=== PATIENT | male | born 1990 | race American Indian/Alaskan Native ===

== ENCOUNTER 2016-11-26 08:00 | Emergency (ER) | payer OTHER ==
[2016-11-26] MEDS ORDERED: NACL 0.9% 1000 ML 1,000 ML IV ONE (08:27)
[2016-11-26 08:47] LABS: Basophils % (Auto) 0.6 % (0.0-1.8); Eosinophils % (Auto) 1.4 % (0.0-4.3); Hematocrit 36.8 % (35.5-45.6); Hemoglobin 12.1 gm/dl (11.8-15.2); Mean Corpuscular HGB Conc 33 % (32-34); Mean Corpuscular Hemoglobin 31 pg (28-32); Mean Corpuscular Volume 94 fl (84-94); Platelet Count 277 K/mm3 (140-440); Red Blood Count 3.92 M/mm3 (3.65-5.03); Red Cell Distribution Width 13.4 % (13.2-15.2); White Blood Count 6.5 K/mm3 (4.5-11.0)
[2016-11-26 08:58] LABS: INR 1.01 (0.87-1.13)
[2016-11-26 08:59] LABS: Partial Thromboplastin Time 38.1 Sec. (24.2-36.6)
[2016-11-26 09:03] LABS: Alanine Aminotransferase 11 units/L (7-56); Albumin 3.6 g/dL (3.9-5); Albumin/Globulin Ratio 1.2 %; Alkaline Phosphatase 61 units/L (35-129); Anion Gap 12 mmol/L; Bilirubin,Total < 0.2 mg/dL (0.1-1.2); Blood Urea Nitrogen 9 mg/dL (9-20); Carbon Dioxide 30 mmol/L (22-30); Chloride 104.3 mmol/L (98-107); Glucose 91 mg/dL (75-100); Lipase 30 units/L (13-60); Potassium 4.2 mmol/L (3.6-5.0); Sodium 142 mmol/L (137-145); Total Protein 6.6 g/dL (6.3-8.2)
--- NOTE | 2016-11-26 10:33 | Emergency Department Report ---
ED GI Bleed HPI - General Chief complaint: GI Bleed Stated complaint: RECTUM BLEEDING Time Seen by Provider: 11/26/16 10:07 Source: patient Mode of arrival: Stretcher Limitations: No Limitations - History of Present Illness Initial comments: 25-year-old male presents to the emergency department complaining of rectal pain and bleeding. Patient states for the past 4 days he has been having bright red blood and blood clots in his stool. He reports pain and swelling with bowel movements. He also reports pain with walking. He denies abdominal pain, chest pain, difficulty breathing, or lightheadedness. There are no other complaints. MD complaint: gross hematochezia -: Gradual, days(s) (4) Radiation: none Severity scale (0 -10): 7 Quality: sharp Consistency: constant Improves with: none Worsens with: bowel movement Associated Symptoms: denies other symptoms - Related Data Previous Rx's Medication Instructions Recorded Last Taken Type Docusate Sodium [Colace] 100 mg PO BID #60 capsule 11/26/16 Unknown Rx Hydrocortisone [Anucort-HC SUPPOS] 25 mg RC BID #20 supp.rect 11/26/16 Unknown Rx traMADol [Ultram] 50 mg PO Q6HR PRN #20 tablet 11/26/16 Unknown Rx Allergies Allergy/AdvReac Type Severity Reaction Status Date / Time tomato Allergy Swelling Verified 11/26/16 08:18 ED Review of Systems ROS: Stated complaint: RECTUM BLEEDING Other details as noted in HPI Comment: All other systems reviewed and negative Gastrointestinal: as per HPI, hematochezia ED Past Medical Hx - Past Medical History Previous Medical History?: Yes Hx Psychiatric Treatment: Yes (Schziophrenia) - Surgical History Past Surgical History?: Yes Additional Surgical History: lower jaw repair - Family History Family history: no significant - Social History Smoking Status: Never Smoker Substance Use Type: Marijuana - Medications Home Medications: Home Medications Medication Instructions Recorded Confirmed Last Taken Type Docusate Sodium [Colace] 100 mg PO BID #60 capsule 11/26/16 Unknown Rx Hydrocortisone [Anucort-HC SUPPOS] 25 mg RC BID #20 supp.rect 11/26/16 Unknown Rx traMADol [Ultram] 50 mg PO Q6HR PRN #20 tablet 11/26/16 Unknown Rx ED Physical Exam - General Limitations: No Limitations General appearance: alert, in no apparent distress - Head Head exam: Present: atraumatic, normocephalic - Eye Eye exam: Present: normal appearance, PERRL, EOMI - ENT ENT exam: Present: normal exam, normal orophraynx, mucous membranes moist - Neck Neck exam: Present: normal inspection, full ROM. Absent: tenderness - Respiratory Respiratory exam: Present: normal lung sounds bilaterally. Absent: respiratory distress - Cardiovascular Cardiovascular Exam: Present: regular rate, normal rhythm, normal heart sounds - GI/Abdominal GI/Abdominal exam: Present: soft, normal bowel sounds. Absent: distended, tenderness - Rectal Rectal exam: Present: hemorrhoids (multiple external hemorrhoids, nonthrombosed) - Extremities Exam Extremities exam: Present: normal inspection, full ROM. Absent: tenderness - Back Exam Back exam: Present: normal inspection, full ROM. Absent: tenderness - Neurological Exam Neurological exam: Present: alert, oriented X3. Absent: motor sensory deficit - Skin Skin exam: Present: warm, dry, intact ED Course Vital Signs 11/26/16 08:18 Temperature 97.9 F Pulse Rate 63 Respiratory 12 Rate Blood Pressure 110/64 O2 Sat by Pulse 98 Oximetry ED Medical Decision Making - Lab Data Result diagrams: 11/26/16 08:31 11/26/16 08:31 - Medical Decision Making Lab results reviewed and discussed with the patient. Patient will be discharged home supportive care to follow-up with his primary care physician. - Differential Diagnosis GI bleed, anemia, external hemorrhoids Critical care attestation.: If time is entered above; I have spent that time in minutes in the direct care of this critically ill patient, excluding procedure time. ED Disposition Clinical Impression: External hemorrhoids without complication Disposition: DISCHARGED TO HOME OR SELFCARE Is pt being admited?: No Condition: Stable Instructions: Hemorrhoids (ED) Prescriptions: Docusate Sodium [Colace] 100 mg PO BID #60 capsule Hydrocortisone [Anucort-HC SUPPOS] 25 mg RC BID #20 supp.rect traMADol [Ultram] 50 mg PO Q6HR PRN #20 tablet PRN Reason: Pain Referrals: PRIMARY CARE,MD [Primary Care Provider] - 3-5 Days Forms: Accompanied Note Time of Disposition: 10:36
[2016-11-26 11:11] VITALS: BP 102/59
== END 2016-11-26 10:30 | disposition home or self-care (01) ==
LOC: ED 08:00
DX: K64.4 Residual hemorrhoidal skin tags (principal); F20.9 Schizophrenia, unspecified; F12.90 Cannabis use, unspecified, uncomplicated; Z91.018 Allergy to other foods
CPT/HCPCS: 36415; 80053; 83690; 85025; 85610; 85730; 86850; 86900; 86901

== ENCOUNTER 2016-11-29 11:12 | Emergency (ER) | payer SELFPAY | END 2016-11-29 11:53 | disposition left against medical advice (07) | LOC: ED 11:12 | DX: K62.5 Hemorrhage of anus and rectum (principal); Z53.21 Procedure and treatment not carried out due to patient leaving prior to being seen by health care provider ==